=== PATIENT | female | born 1990 | race African-American/Black ===

== ENCOUNTER 2020-02-22 10:27 | Emergency (ER) | payer OTHER ==
[~2020-02-22] VITALS: Ht 170.2 cm; Wt 71.7 kg
[2020-02-22] MEDS ORDERED: ONDANSETRON 2MG/ML, 2ML ONE (11:16)
[2020-02-22] MEDS ORDERED: MORPHINE SULFATE 4 MG/ML, 1ML ONE (11:16)
[2020-02-22] MEDS ORDERED: SODIUM CHLORIDE 0.9% 1,000ML IVBOLUS ONE (11:30)
[2020-02-22] MEDS ORDERED: MORPHINE SULFATE 4 MG/ML, 1ML IVPush PRN (11:30)
[2020-02-22] MEDS ORDERED: ONDANSETRON 2MG/ML, 2ML IVPush ONE (11:30)
--- NOTE | 2020-02-22 12:03 | NUR ---
PT UPRIGHT ON GURNEY WITH EYES CLOSED, DROWSY BUT RESPONDS APPROP TO STAFF, NAD & MORE COMFORTABLE AFTER PAIN & NAUSEA MEDS, COMFORT MEASURES PROVIDED, CALL LIGHT WITHIN REACH.
[2020-02-22 12:13] LABS: BASOPHILS # (AUTO) 0.03 x10^3/uL (0-0.1); BASOPHILS % (AUTO) 0 % (0-1); EOSINOPHILS # (AUTO) 0.11 x10^3/uL (0-0.4); EOSINOPHILS % (AUTO) 1 % (1-7); LYMPHOCYTES # (AUTO) 1.18 x10^3/uL (1-3.4); LYMPHOCYTES % (AUTO) 11 % (22-44); MD NO; MEAN CORPUSCULAR HEMOGLOBIN 26.9 pg (27.0-34.8); MEAN CORPUSCULAR HGB CONC 32.1 g/dL (32.4-35.8); MEAN CORPUSCULAR VOLUME 83.7 fL (80-100); MEAN PLATELET VOLUME 9.8 fL (7.4-10.4); MONOCYTES # (AUTO) 0.67 x10^3/uL (0.2-0.8); MONOCYTES % (AUTO) 6 % (2-9); NEUTROPHILS # (AUTO) 8.83 x10^3/uL (1.8-6.8); NEUTROPHILS % (AUTO) 82 % (42-75); PLATELET COUNT 315 x10^3/uL (130-400); RED BLOOD COUNT 4.58 x10^6/uL (3.82-5.3); RED CELL DISTRIBUTION WIDTH 15.7 % (9.6-15.2)
[2020-02-22 12:22] LABS: ALBUMIN 4.1 g/dL (3.4-5.0); ANION GAP 13 mmol/L (5-15); CALCIUM 9.1 mg/dL (8.5-10.1); CHLORIDE 111 mmol/L (98-107)
[2020-02-22 12:27] LABS: ALANINE AMINOTRANSFERASE 27 U/L (12-78); ALKALINE PHOSPHATASE 72 U/L (45-117); BILIRUBIN,TOTAL 0.9 mg/dL (0.2-1.0); CREATININE 1.13 mg/dL (0.55-1.02); TOTAL PROTEIN 7.9 g/dL (6.4-8.2); TROPONIN I < 0.015 ng/mL (0.000-0.045)
[2020-02-22] MEDS ORDERED: DIAZEPAM 5 MG/ML, 2ML ONE (12:39)
[2020-02-22] MEDS ORDERED: DIAZEPAM 5 MG/ML, 2ML IV ONE (13:00)
--- NOTE | 2020-02-22 13:01 | NUR ---
PT REMAINS UPRIGHT ON GURNEY WITH EYES CLOSED, REMAINS DROWSY BUT RESPONDS APPROP TO STAFF, NAD & MORE COMFORTABLE AFTER VALIUM, ABLE TO LEAN BACK MORE COMFORTABLY, NO NEEDS AT THIS TIME, CALL LIGHT WITHIN REACH.
--- NOTE | 2020-02-22 13:03 | NUR ---
PT TO CTA
[2020-02-22] MEDS ORDERED: OMNIPAQUE 350 MG/ML, 100ML BOTTLE ONE (13:50)
[2020-02-22 14:07] VITALS: BP 127/76
== END 2020-02-22 14:24 | disposition home or self-care (01) ==
LOC: ED 11:39
DX: S16.1XXA Strain of muscle, fascia and tendon at neck level, initial encounter (principal); R06.02 Shortness of breath; R11.2 Nausea with vomiting, unspecified; R94.31 Abnormal electrocardiogram [ECG] [EKG]; X58.XXXA Exposure to other specified factors, initial encounter; Y93.89 Activity, other specified; Y92.89 Other specified places as the place of occurrence of the external cause; Y99.8 Other external cause status
CPT/HCPCS: 36415; 70498; 71045; 80053; 83880; 84484; 84703; 85025; 85379; 93005; 96361; 96374; 96375; 99285; J2270; J2405; J3360; J7030; Q9967

== ENCOUNTER 2021-06-01 17:38 | Emergency (ER) | payer MEDICAID ==
[~2021-06-01] VITALS: Ht 165.1 cm; Wt 83.0 kg
[2021-06-01 18:33] VITALS: BP 160/99
[2021-06-01] MEDS ORDERED: DULOXETINE 30 MG CAPSULE.DR PO ONE (19:00)
[2021-06-01] MEDS ORDERED: LORazepam 1MG TABLET PO ONE (19:00)
[2021-06-01] MEDS ORDERED: LORazepam 1MG TABLET ONE (19:16)
[2021-06-01 19:25] LABS: BASOPHILS % (AUTO) 1 % (0-1); EOSINOPHILS % (AUTO) 1 % (1-7); LYMPHOCYTES % (AUTO) 12 % (22-44); MEAN CORPUSCULAR HEMOGLOBIN 25.8 pg (27.0-34.8); MEAN CORPUSCULAR HGB CONC 32.5 g/dL (32.4-35.8); MEAN PLATELET VOLUME 9.3 fL (7.4-10.4); MONOCYTES % (AUTO) 5 % (2-9); NEUTROPHILS % (AUTO) 82 % (42-75); PLATELET COUNT 288 x10^3/uL (130-400); RED BLOOD COUNT 4.95 x10^6/uL (3.82-5.3)
[2021-06-01 19:29] LABS: ALBUMIN 4.1 g/dL (3.4-5.0); ANION GAP 4 mmol/L (5-15); CALCIUM 9.3 mg/dL (8.5-10.1); CHLORIDE 112 mmol/L (98-107)
[2021-06-01 19:33] LABS: SALICYLATE LEVEL < 1.7 mg/dL (2.8-20.0)
[2021-06-01 19:35] LABS: ALANINE AMINOTRANSFERASE 15 U/L (12-78); ALKALINE PHOSPHATASE 80 U/L (45-117); BILIRUBIN,TOTAL 0.5 mg/dL (0.2-1.0); CREATININE 0.93 mg/dL (0.55-1.02); TOTAL PROTEIN 8.2 g/dL (6.4-8.2)
== END 2021-06-01 19:24 | disposition home or self-care (01) ==
LOC: MERGE 17:38 → ED 18:00
DX: F41.1 Generalized anxiety disorder (principal)
CPT/HCPCS: 36415; 80053; 80299; 80320; 80329; 84703; 85025; 99283; G0480